=== PATIENT | male | born 1985 | race Caucasian/White ===

== ENCOUNTER 2019-04-02 16:39 | Emergency (ER) | payer OTHER ==
[~2019-04-02] VITALS: Ht 177.8 cm; Wt 77.3 kg
[2019-04-02 16:43] VITALS: Ht 177.8 cm; Wt 77.3 kg
[2019-04-02 20:26] VITALS: BP 134/78
== END 2019-04-02 20:57 | disposition home or self-care (01) ==
LOC: D.ER 16:39
DX: R51 Headache (principal); F17.210 Nicotine dependence, cigarettes, uncomplicated